=== PATIENT | male | born 1950 | race Caucasian/White ===

== ENCOUNTER 2017-10-22 13:34 | Inpatient (IN) | payer MEDICARE, OTHER ==
[~2017-10-22] VITALS: Ht 182.9 cm; Wt 92.1 kg
[~2017-10-22 13:34] MED LIST: APRISO0.375 GM PO; ASPIR 8181 MG PO; CENTRUM SILVER1 EAC3 PO; CO Q-10200 MG PO; FISH OIL300 MG PO; LISINOPRIL10 MG PO; NITROGLYCERIN0.4 MG SL
[2017-10-22] MEDS ORDERED: FUROSEMIDE40 MG PO (13:55)
[2017-10-22] MEDS ORDERED: METOPROLOL SUCC25 MG PO (13:55)
[2017-10-22] MEDS ORDERED: SODIUM CHLORIDE 0.9% 1000ML 1,000 ML IV STA (14:59)
[2017-10-22] MEDS ORDERED: HEPARIN 25,000U/0.45% NS 250ML 1,400 UNIT in SODIUM CHLORIDE 0.9% 250ML 0 ML IV SCH (15:00)
[2017-10-22] MEDS ORDERED: HEPARIN SOD (PORCINE) 5,000 UNIT/ML VIAL IV ONE (15:00)
[2017-10-22 15:08] LABS: BASOPHILS % 0.3 % (0.0-1.0); EOSINOPHILS # (AUTO) 0.2 (0.0-0.4); EOSINOPHILS % 1.5 % (0.0-6.0); HEMATOCRIT 38.3 % (38.2-49.6); HEMOGLOBIN 12.1 g/dL (14.0-18.0); LYMPHOCYTES # (AUTO) 4.6 (1.0-3.2); LYMPHOCYTES % 32.1 % (18.0-39.1); MEAN CORPUSCULAR HEMOGLOBIN 28.6 pg (28-32); MEAN CORPUSCULAR HGB CONC 31.6 g/dL (31-35); MEAN CORPUSCULAR VOLUME 90.5 fL (81-99); MONOCYTES % 7.2 % (4.4-11.3); NEUTROPHILS # (AUTO) 8.4 (2.1-6.9); NEUTROPHILS % 58.5 % (38.7-80.0); PLATELET COUNT 371 x10e3/uL (140-360); RED BLOOD COUNT 4.23 x10e6/uL (4.3-5.7); RED CELL DISTRIBUTION WIDTH 12.6 % (11.7-14.4)
[2017-10-22 15:12] LABS: INR 1.04; PROTHROMBIN TIME 12.8 seconds (11.9-14.5)
[2017-10-22 15:13] LABS: PARTIAL THROMBOPLASTIN TIME 26.4 seconds (23.8-35.5)
--- NOTE | 2017-10-22 15:19 | Diagnostic Imaging Report ---
PROCEDURE: A single AP view of the chest. COMPARISON: Patients [facility], , CHEST 2 VIEWS, 06/03/2016, 9:59. INDICATIONS: BILATERAL BLOOD CLOTS IN LEGS TODAY FINDINGS: Lines/tubes: None. Lungs: The lungs are well inflated. Stable linear opacities projecting in the left lateral costophrenic angle, likely representing scarring. There is no evidence of consolidation or pulmonary edema. Pleura: There is no pleural effusion or pneumothorax. Heart and mediastinum: Cardiac silhouette is unremarkable. CABG changes. Pulmonary vasculature is normal. Bone and soft tissues: No acute bony abnormality. Midline sternotomy wires. IMPRESSION: 1. No acute cardiopulmonary disease. Mehul Sharp M.D. Dictated by: Mehul Sharp M.D. on 10/22/2017 at 15:24 Electronically approved by: Mehul Sharp M.D. on 10/22/2017 at 15:24
[2017-10-22 15:22] LABS: ALANINE AMINOTRANSFERASE 12 IU/L (0-55); ALBUMIN 3.1 g/dL (3.5-5.0); ALBUMIN/GLOBULIN RATIO 0.6 (0.8-2.0); ALKALINE PHOSPHATASE 94 IU/L (40-150); ANION GAP 13.8 mmol/L (8-16); BLOOD UREA NITROGEN 12 mg/dL (7-26); BUN/CREATININE RATIO 11 (6-25); CALCIUM 9.7 mg/dL (8.4-10.2); CARBON DIOXIDE 30 mmol/L (22-29); CHLORIDE 98 mmol/L (98-107); CREATININE, SERUM 1.05 mg/dL (0.72-1.25); EST GLOMERULAR FILTRATION RATE > 60 ML/MIN (60-); GLUCOSE 104 mg/dL (74-118); POTASSIUM 3.8 mmol/L (3.5-5.1); SODIUM 138 mmol/L (136-145)
[2017-10-22] MEDS ORDERED: SODIUM CHLORIDE 0.9% 250ML 250 ML ONE (15:37)
[2017-10-22] MEDS ORDERED: MORPHINE SULFATE 2 MG/ML SYR IV PRN (16:15)
[2017-10-22] MEDS ORDERED: ONDANSETRON HCL INJ 2 MG/ML VIAL IV PRN (16:15)
[2017-10-22] MEDS: HEPARIN 25,000U/0.45% NS 250ML 1,400 UNIT in SODIUM CHLORIDE 0.9% 250ML 0 ML IV SCH (16:25)
[2017-10-22] MEDS ORDERED: HYDRALAZINE HCL 20 MG/ML VIAL IV PRN (16:30)
[2017-10-22] MEDS ORDERED: ACETAMINOPHEN 325 MG TAB PO PRN (16:30)
[2017-10-22] MEDS: METHYLPREDNISOLONE SOD SUCC 40 MG/ML VIAL IV SCH (16:42)
[2017-10-22] MEDS: FAMOTIDINE 20 MG TAB PO SCH (16:42)
--- NOTE | 2017-10-22 16:54 | Consultation ---
DATE OF CONSULTATION: October 22, 2017 CARDIOLOGY CONSULTATION REQUESTING PHYSICIAN: Dr. Finnegan REASON FOR CONSULTATION: DVT. HISTORY OF PRESENT ILLNESS: Mr. Lepe is a 67-year-old gentleman with past medical history as listed below, who reportedly has been experiencing worsening leg swelling. He has been taking his diuretics, but still the swelling was persistent, especially in his right leg. He has a history of DVT in his left leg in the past, so the patient was advised to have a venous Doppler. He underwent a venous Doppler today at the office. It showed extensive DVT of his right lower extremity in the common femoral and superficial femoral and popliteal veins and old thrombus in the left popliteal vein. The patient was asked to get to the hospital. Besides, the patient has noticed some red blood in his stools. He thinks it is from his hemorrhoids. He has a history of ulcerative colitis and sees Dr. Calix. Denies any chest pain. He had some shortness of breath and had some cough. REVIEW OF SYSTEMS CONSTITUTIONAL: He had some fatigue and weakness. HEENT: No headache, blurring of vision, seizures or syncope. CARDIOVASCULAR: No chest pain. Had some dyspnea, orthopnea, PND. RESPIRATORY: Has cough. No fever or expectoration. GI: No abdominal pain, vomiting or diarrhea. Has noticed some red blood in the stools. : No dysuria, frequency, incontinence. ALLERGIES: NO KNOWN DRUG ALLERGIES. MEDICATIONS: See list. PAST MEDICAL HISTORY 1. History of CAD, status post CABG in April 2016. 2. History of abdominal aortic aneurysm, status post repair by Dr. Otero in May 2014. 3. History of hypertension. 4. History of ulcerative colitis. 5. History of hyperlipidemia. 6. History of CHF diastolic. SOCIAL HISTORY: Quit smoking about 5 years back. Does not drink alcohol. FAMILY HISTORY: Noncontributory. PHYSICAL EXAMINATION GENERAL: Moderately built and nourished gentleman. Awake, alert, not in any obvious distress. VITALS: Heart rate is 98. Blood pressure is 99/43. HEENT: Atraumatic. NECK: No JVD, bruit, thyromegaly, lymphadenopathy. CARDIOVASCULAR: The 1st and 2nd heart sounds heard. No murmurs, rubs or gallops appreciated. CHEST: Decreased air entry at the bases. No adventitious sounds appreciated. Midline surgical scar. ABDOMEN: Soft, nontender. EXTREMITIES: Has 2+ edema of the right lower extremity and trace edema of the left lower extremity. LABS: Pending. IMPRESSION 1. Acute right lower extremity deep venous thrombosis. 2. History of ulcerative colitis. 3. Questionable gastrointestinal bleed. 4. History of hypertension. 5. History of coronary artery disease and coronary artery bypass graft. 6. History of abdominal aneurysm repair. 7. History of hyperlipidemia. 8. History of congestive heart failure, diastolic. PLAN 1. Patient's labs have been drawn. 2. Will get chest x-ray and EKG. 3. Will start him on IV heparin. 4. He had an echocardiogram done on 11/30 which showed an EF of 50% to 55%, mild mitral regurgitation, mild to moderate tricuspid regurgitation. 5. GI consult. 6. Patient's blood pressure is on the lower side, will hold his antihypertensives. 7. Further cardiac workup depending on clinical course. 8. Discussed my impression and plan of management with the patient and his , and they understand it. As always, I appreciate and thank you very much for your referrals. Job#: [id number]
[2017-10-22 21:55] VITALS: BP 116/72
[2017-10-22] MEDS: SODIUM CHLORIDE 0.9% 1000ML 1,000 ML IV SCH (23:48)
[2017-10-22 23:58] VITALS: BP 116/72
[2017-10-23] VITALS (8 sets, daily range): BP systolic 122–165; BP diastolic 66–88
[2017-10-23] MEDS: HEPARIN 25,000U/0.45% NS 250ML 1,400 UNIT in SODIUM CHLORIDE 0.9% 250ML 0 ML IV SCH (00:25)
[2017-10-23] MEDS: METHYLPREDNISOLONE SOD SUCC 40 MG/ML VIAL IV SCH ×3 (00:39→17:05)
[2017-10-23 06:21] LABS: BASOPHILS % 0.1 % (0.0-1.0); HEMOGLOBIN 10.2 g/dL (14.0-18.0); LYMPHOCYTES # (AUTO) 1.4 (1.0-3.2); LYMPHOCYTES % 20.5 % (18.0-39.1); MEAN CORPUSCULAR HEMOGLOBIN 28.7 pg (28-32); MEAN CORPUSCULAR HGB CONC 31.9 g/dL (31-35); MEAN CORPUSCULAR VOLUME 90.1 fL (81-99); MONOCYTES # (AUTO) 0.1 (0.2-0.8); MONOCYTES % 1.2 % (4.4-11.3); NEUTROPHILS # (AUTO) 5.3 (2.1-6.9); NEUTROPHILS % 77.8 % (38.7-80.0); PLATELET COUNT 249 x10e3/uL (140-360); RED BLOOD COUNT 3.55 x10e6/uL (4.3-5.7); RED CELL DISTRIBUTION WIDTH 12.3 % (11.7-14.4)
[2017-10-23 06:40] LABS: BLOOD UREA NITROGEN 18 mg/dL (7-26); BUN/CREATININE RATIO 18 (6-25); CALCIUM 9.3 mg/dL (8.4-10.2); CHOL/HDL RATIO 4.6 (3.9-4.7); CHOLESTEROL 188 MD/DL (0-199); CREATININE, SERUM 1.01 mg/dL (0.72-1.25); EST GLOMERULAR FILTRATION RATE > 60 ML/MIN (60-); GLUCOSE 175 mg/dL (74-118); HDL CHOLESTEROL 41 MG/DL (40-60); LDL CHOLESTEROL 128 MG/DL (60-130); MAGNESIUM 1.9 MG/DL (1.3-2.1); TRIGLYCERIDES 93 MG/DL (0-149)
[2017-10-23 07:11] LABS: ANION GAP 12.6 mmol/L (8-16); CARBON DIOXIDE 26 mmol/L (22-29); CHLORIDE 100 mmol/L (98-107); POTASSIUM 5.6 mmol/L (3.5-5.1); SODIUM 133 mmol/L (136-145)
[2017-10-23 07:39] LABS: B-TYPE NATRIURETIC PEPTIDE2 149.8 pg/mL (0-100)
[2017-10-23] MEDS: SODIUM CHLORIDE 0.9% 1000ML 1,000 ML IV SCH ×2 (07:45→20:43)
[2017-10-23 07:46] LABS: FREE T4 (FREE THYROXINE) 0.94 ng/dL (0.9-1.8); THYROID STIMULATING HORMONE 0.195 uIU/mL (0.350-4.940)
[2017-10-23] MEDS: [UNRECOGNIZED DRUG - OTHER] IV SCH (07:50)
[2017-10-23] MEDS: HEPARIN IV SCH (07:50)
[2017-10-23] MEDS: SODIUM CHLORIDE IV SCH (07:50)
[2017-10-23 07:51] LABS: BASOPHILS % 0.1 % (0.0-1.0); HEMATOCRIT 30.3 % (38.2-49.6); HEMOGLOBIN 9.9 g/dL (14.0-18.0); LYMPHOCYTES # (AUTO) 1.5 (1.0-3.2); LYMPHOCYTES % 19.7 % (18.0-39.1); MEAN CORPUSCULAR HEMOGLOBIN 28.9 pg (28-32); MEAN CORPUSCULAR HGB CONC 32.7 g/dL (31-35); MEAN CORPUSCULAR VOLUME 88.3 fL (81-99); MONOCYTES # (AUTO) 0.1 (0.2-0.8); MONOCYTES % 1.5 % (4.4-11.3); NEUTROPHILS # (AUTO) 5.8 (2.1-6.9); NEUTROPHILS % 78.3 % (38.7-80.0); PLATELET COUNT 238 x10e3/uL (140-360); RED BLOOD COUNT 3.43 x10e6/uL (4.3-5.7); RED CELL DISTRIBUTION WIDTH 12.2 % (11.7-14.4)
[2017-10-23 07:55] LABS: CLARITY,URINE CLOUDY (CLEAR); COLOR,URINE YELLOW (YELLOW); LEUKOCYTE ESTERASE ,URINE NEGATIVE (NEGATIVE)
[2017-10-23 07:56] LABS: BILIRUBIN,URINE NEGATIVE (NEGATIVE); KETONES,URINE NEGATIVE (NEGATIVE); NITRITE,URINE NEGATIVE (NEGATIVE); PROTEIN,URINE DIPSTICK TRACE (NEGATIVE); URINE UROBILINOGEN 0.2 mg/dL (0.2 - 1)
[2017-10-23] MEDS: FAMOTIDINE 20 MG TAB PO SCH ×2 (08:00→17:05)
[2017-10-23 08:05] LABS: BACTERIA,URINE MANY /HPF
[2017-10-23 08:08] LABS: AMORPHOUS SEDIMENT,URINE MANY (FEW); WBC,URINE (MAN) 0-5 /HPF (0-5)
[2017-10-23 08:14] LABS: ALANINE AMINOTRANSFERASE 9 IU/L (0-55); ALBUMIN 2.3 g/dL (3.5-5.0); ALBUMIN/GLOBULIN RATIO 0.5 (0.8-2.0); ALKALINE PHOSPHATASE 74 IU/L (40-150); ANION GAP 11.1 mmol/L (8-16); BLOOD UREA NITROGEN 17 mg/dL (7-26); BUN/CREATININE RATIO 19 (6-25); CALCIUM 8.9 mg/dL (8.4-10.2); CARBON DIOXIDE 25 mmol/L (22-29); CHLORIDE 101 mmol/L (98-107); CHOLESTEROL 185 MD/DL (0-199); CREATININE, SERUM 0.89 mg/dL (0.72-1.25); EST GLOMERULAR FILTRATION RATE > 60 ML/MIN (60-); GLUCOSE 151 mg/dL (74-118); HDL CHOLESTEROL 39 MG/DL (40-60); LDL CHOLESTEROL 128 MG/DL (60-130); POTASSIUM 4.1 mmol/L (3.5-5.1); SODIUM 133 mmol/L (136-145); TRIGLYCERIDES 91 MG/DL (0-149)
[2017-10-23 08:22] LABS: B-TYPE NATRIURETIC PEPTIDE2 240.3 pg/mL (0-100)
[2017-10-23 08:35] LABS: FREE T4 (FREE THYROXINE) 0.91 ng/dL (0.9-1.8); THYROID STIMULATING HORMONE 0.262 uIU/mL (0.350-4.940)
[2017-10-23] MEDS: METOPROLOL SUCCINATE 25 MG TAB XL PO SCH (08:44)
[2017-10-23] MEDS: FUROSEMIDE 40 MG TAB PO SCH (08:44)
[2017-10-23] MEDS ORDERED: MESALAMINE 0.375 GM CAPCR PO SCH ×2 (09:00→12:07)
--- NOTE | 2017-10-23 11:43 | History and Physical ---
PRIMARY CARE PHYSICIAN: Woo Kay DO DIXONAC OPERATOR: Dr. Calix CHIEF COMPLAINT: Left leg swelling. HISTORY OF PRESENT ILLNESS: This is a 67-year-old man with a history of left leg DVT in 2009 who was on anticoagulants for 6 months. The patient also has had ulcerative colitis and has had a GI bleed, now developing left leg swelling. 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 Ultrasound was done, which showed DVT of bilateral lower extremities. He was admitted for medical treatment and further evaluation. PAST MEDICAL HISTORY: Left leg DVT in 2009 on anticoagulant for 6 months, coronary artery disease status post coronary artery bypass graft, right carotid stenosis status post carotid endarterectomy, GI bleed, ulcerative colitis, cigarette abuse, abdominal aortic aneurysm status post repair in 2014, cancer status post nasal procedure for resection in 2003, diastolic congestive heart failure. PAST SURGICAL HISTORY: Right carotid endarterectomy, abdominal aortic aneurysm repair, coronary artery bypass grafting, nasal surgery to remove cancer in 2003, lumbar laminectomy in 1991, knee surgery in 1978. ALLERGIES: PER ELECTRONIC MEDICAL RECORD. FAMILY AND SOCIAL HISTORY: The patient is and has 1 daughter. No alcohol or illicits. Quit cigarettes. MEDICATIONS: Per electronic medical record. REVIEW OF SYSTEMS: Denies any dizziness, chest pain, shortness of breath, fever, chills, sweats, nausea, vomiting, diarrhea, headache, blurred vision. PHYSICAL EXAMINATION VITAL SIGNS: Have been reviewed. GENERAL: A tired-appearing man resting in bed. HEENT: Anicteric. Pupils are responsive to light. No oral lesions. CARDIOVASCULAR: Normal S1 and S2. LUNGS: Moderate breath sounds. ABDOMEN: Soft, nontender, nondistended. EXTREMITIES: There is 1 to 2+ leg edema of the right leg. Calf exam deferred. SKIN: Dry. PSYCHIATRIC: Normal affect. NEUROLOGIC: Alert, oriented times 3, moving all extremities. LABS: Reviewed. MEDICATIONS: Reviewed. ASSESSMENT AND PLAN: A 67-year-old man. 1. Bilateral lower leg deep venous thrombosis. 2. Coronary artery disease. 3. Hypertension. 4. Ulcerative colitis. 5. History of gastrointestinal bleed. 6. Diastolic congestive heart failure. 7. Normocytic anemia. PLAN 1. Continue heparin. 2. Continue Pepcid. Add PPI while the patient is on heparin. 3. GI evaluation. 4. Continue Lasix and for CHF with right leg edema. 5. Continue antihypertensive medication. 6. Continue mesalamine. 7. Consider IVC filter placement considering the patient had a GI bleed in the past and has also ulcerative colitis. Will defer to cardiology. 8. Will likely need lifelong anticoagulants versus IVC filter. 9. Monitor closely. Job#: [id number]
[2017-10-23] MEDS: PANTOPRAZOLE SOD 40 MG TABEC PO SCH (12:12)
[2017-10-24] VITALS (7 sets, daily range): BP systolic 141–157; BP diastolic 79–88
[2017-10-24] MEDS: METHYLPREDNISOLONE SOD SUCC 40 MG/ML VIAL IV SCH ×3 (01:00→16:35)
[2017-10-24 03:41] LABS: BASOPHILS % 0.1 % (0.0-1.0); HEMATOCRIT 31.1 % (38.2-49.6); LYMPHOCYTES # (AUTO) 1.5 (1.0-3.2); LYMPHOCYTES % 9.7 % (18.0-39.1); MEAN CORPUSCULAR HEMOGLOBIN 28.7 pg (28-32); MEAN CORPUSCULAR HGB CONC 32.2 g/dL (31-35); MEAN CORPUSCULAR VOLUME 89.1 fL (81-99); MONOCYTES # (AUTO) 0.4 (0.2-0.8); MONOCYTES % 2.5 % (4.4-11.3); NEUTROPHILS # (AUTO) 13.1 (2.1-6.9); NEUTROPHILS % 87.2 % (38.7-80.0); PLATELET COUNT 254 x10e3/uL (140-360); RED BLOOD COUNT 3.49 x10e6/uL (4.3-5.7); RED CELL DISTRIBUTION WIDTH 12.5 % (11.7-14.4)
[2017-10-24 03:58] LABS: ANION GAP 11.1 mmol/L (8-16); BLOOD UREA NITROGEN 18 mg/dL (7-26); BUN/CREATININE RATIO 21 (6-25); CALCIUM 8.7 mg/dL (8.4-10.2); CARBON DIOXIDE 27 mmol/L (22-29); CHLORIDE 102 mmol/L (98-107); CREATININE, SERUM 0.86 mg/dL (0.72-1.25); EST GLOMERULAR FILTRATION RATE > 60 ML/MIN (60-); GLUCOSE 153 mg/dL (74-118); MAGNESIUM 1.7 MG/DL (1.3-2.1); POTASSIUM 4.1 mmol/L (3.5-5.1); SODIUM 136 mmol/L (136-145)
[2017-10-24] MEDS: MESALAMINE 0.375 GM CAPCR PO SCH (07:53)
[2017-10-24] MEDS: PANTOPRAZOLE SOD 40 MG TABEC PO SCH (08:08)
[2017-10-24] MEDS: FUROSEMIDE 40 MG TAB PO SCH (08:08)
[2017-10-24] MEDS: METOPROLOL SUCCINATE 25 MG TAB XL PO SCH (08:08)
[2017-10-24] MEDS ORDERED: MESALAMINE 0.375 GM CAPCR PO SCH (09:00)
[2017-10-24 10:57] LABS: INR 1.13; PROTHROMBIN TIME 13.6 seconds (11.9-14.5)
[2017-10-24 15:55] LABS: FREE T4 (FREE THYROXINE) 0.94 ng/dL (0.9-1.8); THYROID STIMULATING HORMONE 0.374 uIU/mL (0.350-4.940)
[2017-10-24] MEDS: SODIUM CHLORIDE IV SCH (16:34)
[2017-10-24] MEDS: [UNRECOGNIZED DRUG - OTHER] IV SCH (16:34)
[2017-10-24] MEDS: HEPARIN IV SCH (16:34)
--- NOTE | 2017-10-24 17:21 | Consultation ---
DATE OF CONSULTATION: October 24, 2017 ENDOCRINE CONSULTATION Thank you very much for referring this patient. This is a 67-year-old white male gentleman who is referred to me for evaluation of low TSH, rule out hyperthyroidism. Patient came to the hospital with history of lower extremity pain and swelling. He was found to have DVT, and the patient is scheduled for an IVC filter. Patient also has history of ulcerative colitis and has been on and off steroids. During the hospital stay, he has been getting Solu-Medrol. On further evaluation during the hospital stay, his TSH was found to be low on 2 occasions in the range of 0.95. The patient does complain of significant weight loss. He has a history of mild palpitations. Patient also has a significant history of hypertension, coronary artery disease, status post CABG, status post carotid endarterectomy. PHYSICAL EXAMINATION GENERAL: Today, the patient is alert, awake, a little bit apprehensive. VITALS: His heart rate is around 70. Blood pressure is 130/80 mmHg. HEENT: Essentially unremarkable. NECK: Thyroid is barely palpable. Clinically, he is near euthyroid. CHEST: Bilateral vesicular breathing. Normal cardiac 1st and 2nd heart sounds. There is no 3rd or 4th heart sound. Ejection systolic murmur, grade 2/6. CLINICAL IMPRESSION 1. Abnormal thyroid function tests, rule out hyperthyroidism. 2. Bilateral deep venous thrombosis. 3. Ulcerative colitis. 4. Hypertension. 5. Congestive cardiac failure. 6. Anemia. The reason for low TSH could be related to being on the steroids, particularly during the hospital stay. Would like to do a free T3, free T4, TSH, and antiperoxidase antibody. Patient has been reassured about the condition. After this further evaluation, we will see if the patient needs to be on any medication from a thyroid point of view. Thanks for referring this patient. I will be following this patient with you. Job#: [id number] KRISTAN BRYAN
[2017-10-24 17:32] LABS: INR 1.09; PROTHROMBIN TIME 13.3 seconds (11.9-14.5)
[2017-10-24] MEDS: SODIUM CHLORIDE 0.9% 1000ML 1,000 ML IV SCH (18:20)
[2017-10-25] MEDS: METHYLPREDNISOLONE SOD SUCC 40 MG/ML VIAL IV SCH ×3 (01:32→17:38)
[2017-10-25 02:22] LABS: BASOPHILS % 0.1 % (0.0-1.0); HEMATOCRIT 32.7 % (38.2-49.6); HEMOGLOBIN 10.5 g/dL (14.0-18.0); LYMPHOCYTES # (AUTO) 1.5 (1.0-3.2); LYMPHOCYTES % 11.2 % (18.0-39.1); MEAN CORPUSCULAR HEMOGLOBIN 28.8 pg (28-32); MEAN CORPUSCULAR HGB CONC 32.1 g/dL (31-35); MEAN CORPUSCULAR VOLUME 89.8 fL (81-99); MONOCYTES # (AUTO) 0.6 (0.2-0.8); NEUTROPHILS # (AUTO) 11.6 (2.1-6.9); PLATELET COUNT 282 x10e3/uL (140-360); RED BLOOD COUNT 3.64 x10e6/uL (4.3-5.7); RED CELL DISTRIBUTION WIDTH 12.5 % (11.7-14.4)
[2017-10-25 02:36] LABS: ANION GAP 12.9 mmol/L (8-16); BLOOD UREA NITROGEN 22 mg/dL (7-26); BUN/CREATININE RATIO 25 (6-25); CALCIUM 8.8 mg/dL (8.4-10.2); CARBON DIOXIDE 30 mmol/L (22-29); CHLORIDE 100 mmol/L (98-107); CREATININE, SERUM 0.89 mg/dL (0.72-1.25); EST GLOMERULAR FILTRATION RATE > 60 ML/MIN (60-); GLUCOSE 133 mg/dL (74-118); MAGNESIUM 1.6 MG/DL (1.3-2.1); POTASSIUM 3.9 mmol/L (3.5-5.1); SODIUM 139 mmol/L (136-145)
[2017-10-25] MEDS: MESALAMINE 0.375 GM CAPCR PO SCH (07:41)
[2017-10-25] MEDS: FUROSEMIDE 40 MG TAB PO SCH (09:30)
[2017-10-25] MEDS: METOPROLOL SUCCINATE 25 MG TAB XL PO SCH (09:30)
[2017-10-25] MEDS: PANTOPRAZOLE SOD 40 MG TABEC PO SCH (09:30)
[2017-10-25 09:34] VITALS: BP 143/85
[2017-10-25 11:34] VITALS: BP 143/85
[2017-10-25 13:01] VITALS: BP 155/89
[2017-10-25 16:00] VITALS: BP 153/89
[2017-10-25] MEDS: HEPARIN 25,000U/0.45% NS 250ML 250 ML IV SCH (16:00)
[2017-10-25] MEDS ORDERED: HEPARIN IV SCH (16:35)
[2017-10-25] MEDS ORDERED: [UNRECOGNIZED DRUG - OTHER] IV SCH (16:35)
[2017-10-25] MEDS ORDERED: SODIUM CHLORIDE IV SCH (16:35)
[2017-10-25] MEDS: SODIUM CHLORIDE 0.9% 1000ML 1,000 ML IV SCH (17:39)
[2017-10-25 19:36] VITALS: BP 150/92
[2017-10-25 20:00] VITALS: BP 150/92
[2017-10-26] VITALS (13 sets, daily range): BP systolic 86–159; BP diastolic 63–90
[2017-10-26] MEDS: METHYLPREDNISOLONE SOD SUCC 40 MG/ML VIAL IV SCH ×3 (02:11→17:30)
[2017-10-26 03:38] LABS: BASOPHILS % 0.1 % (0.0-1.0); HEMATOCRIT 30.8 % (38.2-49.6); HEMOGLOBIN 10.1 g/dL (14.0-18.0); LYMPHOCYTES # (AUTO) 1.1 (1.0-3.2); LYMPHOCYTES % 10.5 % (18.0-39.1); MEAN CORPUSCULAR HEMOGLOBIN 28.8 pg (28-32); MEAN CORPUSCULAR HGB CONC 32.8 g/dL (31-35); MEAN CORPUSCULAR VOLUME 87.7 fL (81-99); MONOCYTES # (AUTO) 0.4 (0.2-0.8); MONOCYTES % 3.3 % (4.4-11.3); NEUTROPHILS # (AUTO) 8.9 (2.1-6.9); NEUTROPHILS % 85.4 % (38.7-80.0); PLATELET COUNT 237 x10e3/uL (140-360); RED BLOOD COUNT 3.51 x10e6/uL (4.3-5.7); RED CELL DISTRIBUTION WIDTH 12.4 % (11.7-14.4)
[2017-10-26 03:55] LABS: ANION GAP 10.8 mmol/L (8-16); BLOOD UREA NITROGEN 24 mg/dL (7-26); BUN/CREATININE RATIO 30 (6-25); CALCIUM 8.4 mg/dL (8.4-10.2); CARBON DIOXIDE 29 mmol/L (22-29); CHLORIDE 102 mmol/L (98-107); CREATININE, SERUM 0.79 mg/dL (0.72-1.25); EST GLOMERULAR FILTRATION RATE > 60 ML/MIN (60-); GLUCOSE 148 mg/dL (74-118); MAGNESIUM 1.9 MG/DL (1.3-2.1); POTASSIUM 3.8 mmol/L (3.5-5.1); SODIUM 138 mmol/L (136-145)
[2017-10-26 04:03] LABS: INR 1.19; PROTHROMBIN TIME 14.2 seconds (11.9-14.5)
[2017-10-26] MEDS ORDERED: LIDOCAINE HCL 2% LOCAL 20 ML VIAL ONE (07:51)
[2017-10-26] MEDS ORDERED: SODIUM CHLORIDE 0.9% 500ML 1,000 ML ONE (07:52)
[2017-10-26] MEDS ORDERED: FENTANYL CITRATE/PF 100MCG/2 ML INJ ONE (08:21)
[2017-10-26] MEDS ORDERED: MIDAZOLAM HCL 2 MG/2 ML VIAL ONE (08:21)
[2017-10-26] MEDS ORDERED: IOPAMIDOL 300MG/ML 100 ML INFUS..BTL IV ONE (08:29)
--- NOTE | 2017-10-26 11:28 | Diagnostic Imaging Report ---
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 Tapia Pre-operative diagnosis: Right lower extremity DVT, ulcerative colitis with ongoing rectal bleeding contraindicating continued pharmacologic anticoagulation Post-operative diagnosis: Right lower extremity DVT, ulcerative colitis with ongoing rectal bleeding contraindicating continued pharmacologic anticoagulation Conscious Sedation: Versed 2 mg and Fentanyl 100 mcg. The patient's heart rate and pulse oximetry were continuously monitored by the interventional radiology nurse. Blood pressure was monitored at 5 minute intervals. Additional Medications: Lidocaine 1% for local anesthesia Fluoroscopy time: 4.0 minutes Dose-area Product: 1592 cGycm2. Contrast used: 40 cc Isovue-300 Estimated blood loss: Less than 10 cc Blood products administered: None Specimens: None Implants: Bard Loíza retrievable inferior vena cava filter Condition at completion of procedure: Stable Disposition: Returned to floor DISCUSSION: Informed consent for the procedure was obtained from the patient and documented in the medical record after discussion of risks and benefits. The patient was placed in the supine position on the angiographic table. The right neck was prepped and draped in the standard sterile fashion. 1% lidocaine was infiltrated into the skin and subcutaneous tissues for local anesthesia. Then under continuous sonographic guidance, a 21-gauge micropuncture needle was used to access the right internal jugular vein. A 0.0 1 8-in. wire was advanced centrally under fluoroscopic guidance. The needle was exchanged for a micropuncture sheath and the wire upsized to a 0.0 3 5-in. Amplatz Super Stiff wire, which was advanced into the right common iliac vein. The micropuncture sheath was removed over the wire and the tract was dilated. The deployment sheath for a Bard Kayla inferior vena cava filter was then advanced over the wire and positioned in the central common iliac vein. Digital subtraction angiography of the inferior vena cava was then performed. The wire and obturator of the sheath were removed. The inferior vena cava filter was loaded into the sheath and then deployed in the standard fashion under fluoroscopic guidance, with the filter apex at the level of the L2 pedicle. Appropriate positioning was confirmed by injection of dilute contrast material through the vascular sheath. The sheath was then removed and hemostasis was achieved with manual compression. The patient tolerated the procedure well without immediate complication. FINDINGS: Patent internal jugular vein, evidenced by sonographic compressibility. Patent bilateral common iliac veins and inferior vena cava, without filling defect to suggest central thrombus. Single bilateral renal vein inflow at the level of the superior endplate of L2. Caval diameter measures 21 mm along the infrarenal segment. IMPRESSION: Successful placement of a Bard Kayla retrievable inferior vena cava filter under fluoroscopic guidance as described above, without immediate complication. Please notify the interventional radiology service when the patient may resume pharmacologic anticoagulation so that arrangements for filter retrieval may be made. Contact information for the department of radiology at [facility] was provided to the patient's upon completion of the procedure. Signed by: Dr. Paolo Tapia M.D. on 10/26/2017 11:24 AM
[2017-10-26] MEDS: MESALAMINE 0.375 GM CAPCR PO SCH (13:07)
[2017-10-26] MEDS: PANTOPRAZOLE SOD 40 MG TABEC PO SCH (13:08)
[2017-10-26] MEDS: FUROSEMIDE 40 MG TAB PO SCH (13:08)
[2017-10-26] MEDS: METOPROLOL SUCCINATE 25 MG TAB XL PO SCH (13:16)
[2017-10-26] MEDS ORDERED: WARFARIN SOD 5 MG TAB PO ONE (17:00)
[2017-10-26] MEDS: DIPHENOXYLATE/ATROPINE TAB PO SCH (17:35)
[2017-10-26] MEDS: SODIUM CHLORIDE 0.9% 1000ML 1,000 ML IV SCH (20:43)
[2017-10-27 01:22] VITALS: BP 145/93
[2017-10-27] MEDS: METHYLPREDNISOLONE SOD SUCC 40 MG/ML VIAL IV SCH ×3 (01:23→17:20)
[2017-10-27 01:45] LABS: BASOPHILS % 0.1 % (0.0-1.0); HEMATOCRIT 33.7 % (38.2-49.6); LYMPHOCYTES # (AUTO) 1.2 (1.0-3.2); MEAN CORPUSCULAR HEMOGLOBIN 28.7 pg (28-32); MEAN CORPUSCULAR HGB CONC 32.6 g/dL (31-35); MONOCYTES # (AUTO) 0.5 (0.2-0.8); MONOCYTES % 4.4 % (4.4-11.3); NEUTROPHILS # (AUTO) 10.1 (2.1-6.9); NEUTROPHILS % 84.5 % (38.7-80.0); PLATELET COUNT 237 x10e3/uL (140-360); RED BLOOD COUNT 3.83 x10e6/uL (4.3-5.7); RED CELL DISTRIBUTION WIDTH 12.3 % (11.7-14.4)
[2017-10-27 01:54] LABS: ANION GAP 11.1 mmol/L (8-16); BLOOD UREA NITROGEN 25 mg/dL (7-26); BUN/CREATININE RATIO 26 (6-25); CALCIUM 8.5 mg/dL (8.4-10.2); CARBON DIOXIDE 29 mmol/L (22-29); CHLORIDE 98 mmol/L (98-107); CREATININE, SERUM 0.98 mg/dL (0.72-1.25); EST GLOMERULAR FILTRATION RATE > 60 ML/MIN (60-); GLUCOSE 150 mg/dL (74-118); MAGNESIUM 1.8 MG/DL (1.3-2.1); POTASSIUM 4.1 mmol/L (3.5-5.1); SODIUM 134 mmol/L (136-145)
[2017-10-27] MEDS: HEPARIN 25,000U/0.45% NS 250ML 250 ML IV SCH ×2 (02:49→10:14)
[2017-10-27 05:27] VITALS: BP 155/94
[2017-10-27 08:43] LABS: INR 1.21; PROTHROMBIN TIME 14.4 seconds (11.9-14.5)
[2017-10-27] MEDS: MESALAMINE 0.375 GM CAPCR PO SCH (09:00)
[2017-10-27] MEDS: LISINOPRIL 10 MG TAB PO SCH (09:59)
[2017-10-27] MEDS: PANTOPRAZOLE SOD 40 MG TABEC PO SCH (09:59)
[2017-10-27] MEDS: METOPROLOL SUCCINATE 25 MG TAB XL PO SCH (09:59)
[2017-10-27] MEDS: DIPHENOXYLATE/ATROPINE TAB PO SCH ×2 (09:59→17:20)
[2017-10-27] MEDS: FUROSEMIDE 40 MG TAB PO SCH (09:59)
[2017-10-27 12:00] VITALS: BP 128/68
[2017-10-27 16:00] VITALS: BP 127/91
[2017-10-27] MEDS: WARFARIN SOD 5 MG TAB PO SCH (17:20)
[2017-10-27 20:37] VITALS: BP 114/71
[2017-10-27 20:40] VITALS: BP 114/71
[2017-10-27] MEDS: SODIUM CHLORIDE 0.9% 1000ML 1,000 ML IV SCH (20:43)
[2017-10-28 00:26] VITALS: BP 130/83
[2017-10-28] MEDS: METHYLPREDNISOLONE SOD SUCC 40 MG/ML VIAL IV SCH ×3 (00:26→16:26)
[2017-10-28 04:52] VITALS: BP 141/80
[2017-10-28 04:57] LABS: BASOPHILS % 0.1 % (0.0-1.0); HEMATOCRIT 33.3 % (38.2-49.6); HEMOGLOBIN 10.8 g/dL (14.0-18.0); LYMPHOCYTES # (AUTO) 1.1 (1.0-3.2); LYMPHOCYTES % 8.3 % (18.0-39.1); MEAN CORPUSCULAR HEMOGLOBIN 28.6 pg (28-32); MEAN CORPUSCULAR HGB CONC 32.4 g/dL (31-35); MEAN CORPUSCULAR VOLUME 88.1 fL (81-99); MONOCYTES # (AUTO) 0.6 (0.2-0.8); NEUTROPHILS # (AUTO) 11.9 (2.1-6.9); NEUTROPHILS % 86.5 % (38.7-80.0); PLATELET COUNT 262 x10e3/uL (140-360); RED BLOOD COUNT 3.78 x10e6/uL (4.3-5.7); RED CELL DISTRIBUTION WIDTH 12.6 % (11.7-14.4)
[2017-10-28 05:06] LABS: INR 2.48; PROTHROMBIN TIME 25.2 seconds (11.9-14.5)
[2017-10-28 05:07] LABS: PARTIAL THROMBOPLASTIN TIME 81.5 seconds (23.8-35.5)
[2017-10-28 05:11] LABS: ANION GAP 8.2 mmol/L (8-16); BLOOD UREA NITROGEN 31 mg/dL (7-26); BUN/CREATININE RATIO 36 (6-25); CALCIUM 8.6 mg/dL (8.4-10.2); CARBON DIOXIDE 34 mmol/L (22-29); CHLORIDE 96 mmol/L (98-107); CREATININE, SERUM 0.85 mg/dL (0.72-1.25); EST GLOMERULAR FILTRATION RATE > 60 ML/MIN (60-); GLUCOSE 144 mg/dL (74-118); MAGNESIUM 1.9 MG/DL (1.3-2.1); POTASSIUM 4.2 mmol/L (3.5-5.1); SODIUM 134 mmol/L (136-145)
[2017-10-28 07:41] VITALS: BP 125/75
[2017-10-28] MEDS: MESALAMINE 0.375 GM CAPCR PO SCH (07:49)
[2017-10-28] MEDS ORDERED: POTASSIUM CHLORIDE 20 MEQ TAB CR PO STA (08:29)
[2017-10-28] MEDS ORDERED: FUROSEMIDE INJ 10 MG/ML 4 ML VIAL IV ONE ×2 (08:30→16:00)
[2017-10-28 09:00] VITALS: BP 125/75
[2017-10-28] MEDS: LISINOPRIL 10 MG TAB PO SCH (09:45)
[2017-10-28] MEDS: METOPROLOL SUCCINATE 25 MG TAB XL PO SCH (09:45)
[2017-10-28] MEDS: DIPHENOXYLATE/ATROPINE TAB PO SCH ×2 (09:45→17:03)
[2017-10-28] MEDS: FUROSEMIDE 40 MG TAB PO SCH (09:45)
[2017-10-28] MEDS: PANTOPRAZOLE SOD 40 MG TABEC PO SCH (09:45)
[2017-10-28 11:55] VITALS: BP 125/75
[2017-10-28 15:53] VITALS: BP 127/79
[2017-10-28] MEDS ORDERED: POTASSIUM CHLORIDE 20 MEQ TAB CR PO ONE (16:00)
[2017-10-28] MEDS ORDERED: POTASSIUM CHLO10 ME1 PO (16:23)
[2017-10-28] MEDS ORDERED: LISINOPRIL10 MG PO (16:23)
[2017-10-28] MEDS ORDERED: COUMADIN3 MG PO (16:23)
[2017-10-28] MEDS ORDERED: FUROSEMIDE40 MG PO (16:23)
[2017-10-28] MEDS ORDERED: PREDNISONE20 MG PO (16:23)
[2017-10-28] MEDS ORDERED: METOPROLOL TART25 MG PO (16:23)
[2017-10-28] MEDS: WARFARIN SOD 5 MG TAB PO SCH (16:26)
[2017-10-28] MEDS: HEPARIN 25,000U/0.45% NS 250ML 250 ML IV SCH (17:15)
--- NOTE | 2017-10-28 17:16 | Discharge Summary ---
ADMISSION DIAGNOSES 1. Bilateral lower leg deep vein thrombosis. 2. Coronary artery disease. 3. Hypertension. 4. Ulcerative colitis. 5. History of gastrointestinal bleed. 6. Diastolic congestive heart failure, chronic. 7. Normocytic anemia. DISCHARGE DIAGNOSES 1. Bilateral lower leg deep vein thrombosis. 2. Coronary artery disease. 3. Hypertension. 4. Ulcerative colitis. 5. History of gastrointestinal bleed. 6. Diastolic congestive heart failure, chronic. 7. Normocytic anemia. 8. Hyponatremia. 9. Rule out Clostridium difficile, ___ruled out. 10. Hyperthyroidism. 11. Bradycardia. HISTORY: Patient has a history of left leg DVT in 2009 on anticoagulants for 6 months, CAD status post bypass, right carotid stenosis status post carotid endarterectomy, GI bleed, ulcerative colitis, cigarette abuse, abdominal aortic aneurysm status post repair in 2014, cancer status post nasal procedure for resection in 2003, chronic diastolic congestive heart failure. SURGICAL HISTORY: Right carotid endarterectomy, abdominal aortic aneurysm repair, CABG, nasal surgery to remove cancer, lumbar laminectomy in 1991, and knee surgery in 1978. HOSPITAL COURSE: A 67-year-old male with a history of left leg DVT was on anticoagulation for 6 months in 2009. The patient also has ulcerative colitis and now has a GI bleed as well as bilateral leg swelling. He went to his patient support specialist. An ultrasound was done which showed DVT bilaterally of lower extremities. On admission patient was started on IV heparin. Patient initially did not want to do an IVC filter, but after talking to his patient support specialist as well as the doctor who would place the filter, he agreed. Patient had the filter placed on October 26 with no complications. He remained on heparin a couple more days and was started on Coumadin for overlap therapy. Patient's TSH was found to be 0.195 initially. Free T4 was 0.94. Endocrinology was consulted to rule out hyperthyroidism. Per endocrinology, it could be due to steroids. He will follow up with Dr. Mack in 3 to 4 weeks. On October 28, the patient is clear to discharge per Cardiology. He is now having bowel movements with very little blood as opposed to during admission he was having a lot of blood with very little bowel movements. He is also clear to discharge per Gastroenterology. He will discharge with Lasix and potassium p.o. daily as needed, prednisone 40 daily for 12 days, Coumadin 3 mg daily for 30 days, lisinopril 10 mg and metoprolol 25 b.i.d. He will continue his mesalamine from home per GI. He will follow up with GI on Thursday and Cardiology in 1 to 2 weeks as well as Dr. Mack in 3 to 4 weeks. His has also been given information on who to contact and when to contact them for retrieval of the IVC filter. Both patient and understand discharge instructions and agree with discharge plan. Before discharge, nurse will also give the patient information regarding Coumadin and a diet recommended for Coumadin consumption. Patient will also follow up with Primary Care in 1 to 2 weeks. He is excited and ready to go home. Vital signs are stable, patient afebrile. On day of discharge, WBC 13.73, hemoglobin 10.8, hematocrit 33.3, platelet of 262, sodium of 134, creatinine of 0.85, BUN of 31, GFR of over 60. Patient will discharge home and follow up as discussed. Dictated by: Marcela De La Fuente NP EMMA GEORGE MD Job#: [id number]
== END 2017-10-28 18:00 | disposition home or self-care (01) | DRG 253 ==
LOC: ER 13:34 → ERHOLD 16:05 → IMCU 21:29
PROVIDERS: ADMIT Internal Medicine; ATTEND Internal Medicine
PROC: 06H03DZ Insertion of Intraluminal Device into Inferior Vena Cava, Percutaneous Approach (ICD-10-PCS; principal; 2017-10-26)
DX: I82.411 Acute embolism and thrombosis of right femoral vein (principal); K51.911 Ulcerative colitis, unspecified with rectal bleeding; I50.32 Chronic diastolic (congestive) heart failure; E87.1 Hypo-osmolality and hyponatremia; I82.431 Acute embolism and thrombosis of right popliteal vein; I82.441 Acute embolism and thrombosis of right tibial vein; Z86.718 Personal history of other venous thrombosis and embolism; I25.10 Atherosclerotic heart disease of native coronary artery without angina pectoris; Z95.1 Presence of aortocoronary bypass graft; Z85.22 Personal history of malignant neoplasm of nasal cavities, middle ear, and accessory sinuses; D64.9 Anemia, unspecified; Z87.891 Personal history of nicotine dependence; E78.5 Hyperlipidemia, unspecified; I11.0 Hypertensive heart disease with heart failure; D72.829 Elevated white blood cell count, unspecified; E05.80 Other thyrotoxicosis without thyrotoxic crisis or storm; T38.0X5A Adverse effect of glucocorticoids and synthetic analogues, initial encounter
CPT/HCPCS: 36415; 37191; 71045; 74470; 80048; 80053; 80061; 81001; 82465; 83036; 83718; 83721; 83735; 83880; 84439; 84443; 84478; 84481; 85025; 85610; 85730; 86376; 87086; 87493; 93005; 96366; 99284; J1644; J1940; J2001; J2250; J2920; J7030; J7040; J7050; Q9967

== ENCOUNTER → 2018-11-16 | Day surgery (SDC) | payer MEDICARE, OTHER ==
[2018-11-12 15:16] LABS: BASOPHILS % 0.5 % (0.0-1.0); EOSINOPHILS # (AUTO) 0.2 (0.0-0.4); EOSINOPHILS % 2.9 % (0.0-6.0); HEMATOCRIT 44.3 % (38.2-49.6); LYMPHOCYTES # (AUTO) 2.2 (1.0-3.2); LYMPHOCYTES % 27.5 % (18.0-39.1); MEAN CORPUSCULAR HEMOGLOBIN 29.4 pg (28-32); MEAN CORPUSCULAR HGB CONC 31.6 g/dL (31-35); MEAN CORPUSCULAR VOLUME 92.9 fL (81-99); MONOCYTES # (AUTO) 0.8 (0.2-0.8); MONOCYTES % 9.3 % (4.4-11.3); NEUTROPHILS # (AUTO) 4.8 (2.1-6.9); NEUTROPHILS % 59.6 % (38.7-80.0); PLATELET COUNT 196 x10e3/uL (140-360); RED BLOOD COUNT 4.77 x10e6/uL (4.3-5.7); RED CELL DISTRIBUTION WIDTH 12.9 % (11.7-14.4)
[2018-11-12 15:31] LABS: INR 1.12; PROTHROMBIN TIME 14.9 seconds (11.9-14.5)
[~2018-11-16] VITALS: Ht 365.8 cm; Wt 86.2 kg
[~2018-11-16] MED LIST changes: +ATORVASTATIN CA20 MG PO; +COUMADIN3 MG PO; +COUMADIN5 MG PO; +FENTANYL CITRATE/PF 100MCG/2 ML INJ ONE; +FUROSEMIDE40 MG PO; +HEPARIN SOD/SOD CHLORIDE 2,000 ML ONE; +IOPAMIDOL 370 MG/ML 200 ML INFUS..BTL INJ ONE; +LIDOCAINE HCL 2% LOCAL 20 ML VIAL ONE; +METOPROLOL SUCC25 MG PO; +METOPROLOL TART25 MG PO; +MIDAZOLAM HCL 2 MG/2 ML VIAL ONE; +POTASSIUM CHLO10 ME1 PO; +PREDNISONE20 MG PO; +SODIUM CHLORIDE 0.9% 1000ML 1,000 ML ONE
[2018-11-16 10:20] VITALS: BP 137/79
--- NOTE | 2018-11-16 10:20 | NUR ---
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 Identiferx2 Id band left arm NKDA at bedside Leah Alert oriented and appropriate, PERRLA, respirations even and unlabored to room air. Pulses x4 extremities equal and faint. Pedal pulses PT/DP weak to nonexistent and marked. Cap fill brisk Skin warm and dry integrity appears intact in general. IV 20g#20 left arm x1 started and presents healthy w/o s/s of infiltration or complaint.Flushed Ns and slip clamp in place. Abdomen soft and supple. pt offered toileting, denies need to urinate or defecate. Personal affects with patient. Family at bedside. Pt and family verbalizes understanding of POC. No pre op orders. Report to Zachary TAVERA. Leah states has personal appt at 12n and will be able to pharmacy picking technician pt around 2pm. No gross issues pain,pallor,pressure.Denies CP or SOB Orientated to room bedbrakes on, in low position with call light at bedside. Requested to ask for assistance to get up. remains at bedside. ds/charles
--- OUTSIDE RECORDS SUMMARY | 2018-11-16 10:28 | XMS REPORT | Clinical Summary ---
Author Author [facility] Organization [facility] Address Unknown Phone Unavailable Care Team Providers Care Group Leader Wafer Polishing Name Role Phone Woo Kay DO PCP Allergies No Known Allergies Medications End Date Status Medication Sig Dispensed Refills Start Date Active lisinopril Take 10 mg by 0 (PRINIVIL,ZESTRIL) 10 mg mouth daily. tablet Active mesalamine (APRISO) 0.375 Take 625 mg 0 gram 24 hr capsule by mouth daily. Active aspirin (ECOTRIN) 81 MG Take 81 mg by 0 enteric coated tablet mouth daily. Active nitroglycerin (NITROSTAT) Place 0.4 mg 0 0.4 MG SL tablet under the tongue every 5 (five) minutes as needed for chest pain. Active Problems Problem Noted Date Acute blood loss as cause of postoperative anemia 05/14/2016 Hyperkalemia 05/14/2016 HEATH (acute kidney injury) 05/14/2016 CAD, multiple vessel 05/12/2016 Essential hypertension 05/12/2016 Ulcerative colitis 05/12/2016 Abdominal aortic aneurysm 05/12/2016 Anemia of chronic disease 05/12/2016 Social History Date Tobacco Use Types Packs/Day Years Used Former Smoker 2 47 Comments: quit 01/2009 Alcohol Use Drinks/Week oz/Week Comments No Sex Assigned at Date Recorded Not on file Industry Job Start Date Occupation Not on file Not on file Not on file Travel End Travel History Travel Start No recent travel history available. Last Filed Vital Signs Not on file Plan of Treatment Health Maintenance Due Date Last Done Comments COLONOSCOPY SCREENING 1998 SHINGLES VACCINES (#1) 1998 65+ PNEUMOCOCCAL VACCINE 2013 (1 of 2 - PCV13) INFLUENZA VACCINE 11/25/2018 Implants Device Identifier Shelf Expiration Date Model / Serial / Lot Implanted Type [place] Manufactur [place] [id number] / / Lead Pace Carlyle Mycrdl Unipol Tmpry Cardiovasc N/A: N/A MEDTRONIC Streamline - [id number] ular [place] - Implanted: 05/13/2016 (Quantity not Implants CARDIAC on file) SRGRY S 1100 [id number] / / Chamber Sgl Natalya Dry Suct 1wy Vlv Surgical N/A: N/A TELEFLEX Adlt Pedi - [id number] Implants; MEDICAL Implanted: 05/13/2016 (Quantity not Expanders; on file) Extenders; Surgical Wires 01/22/2021 [id number] / / [id number] [place] Perph Vasclr Ptfe 1.2x10cm Vascular N/A: N/A BARD 1.65mm - [id number] Graft PERIPHERAL Implanted: 05/13/2016 (Quantity not VASCULAR on file) Results Not on fileafter 11/15/2017 Insurance Type Payer Benefit Subscriber ID Effective Phone Address Plan / Dates Group Medicare MEDICARE MEDICARE xxxxxxxxxx 2013- [place]URI, PART A AND Present [place] B PPO HUMANA HUMANA xxxxxxxxx [id number] CHOICE resent CARE PPO Advance Directives Patient has advance care planning documents on file. For more information, alma rosa ann contact: Lauri Jones [address] [place] [address]
[2018-11-16 13:45] VITALS: BP 128/78
--- NOTE | 2018-11-16 13:45 | NUR ---
1345pBedside report received from LIANG Ridley.Identiferx2.IV filter Alert oriented and appropriate, PERRLA, respirations even and unlabored to room air. Pulses x4 extremities equal and strong. Pedal pulses PT/FPb3Inc fill brisk < 3 sec. Skin warm and dry integrity appears D/I IV 20g to left arm presents healthy w/o s/s of infiltration or complaint.100cchr via dial a flow. Abdomen soft and supple. pt offered toileting, denies need to urinate or defecate. No personal affects with patient. Awaiting family arrival. Pt verbalizes understanding of POC. Rt Ij dressing dry and intact No gross issues pain pallor pressure or dysrhythmia. Radha Riddle Rn discussed POC and gave copies to pt For f/o Dr Office 2wks Left iv ti be dc'd upon dc. Currently w/o complaint of pain or need. manny/liang
--- NOTE | 2018-11-16 14:39 | NUR ---
Patient given discharge instructions and medication reconciliation sheet and wheeled to lobby. Dressing clean dryu and intact and IV removed. Patient vital signs within normal limits and no neurovascular checks completed and within normal limits. No complaints of pain from patient asked to follow up with MD in 2 weeks.
--- NOTE | 2018-11-19 07:43 | Operative Report ---
DATE OF PROCEDURE: 11/16/2018 SURGEON: Nestor Barragan MD INDICATION: Inferior vena cava filter retrieval with need for anticoagulation. COMPLICATIONS: None. BLOOD LOSS: 5 mL. DESCRIPTION OF PROCEDURE: Ultrasound-guided access was obtained to the right internal jugular vein. The IVC filter was identified. The 13-[place] sheath was advanced to the inferior vena cava. The filter was retrieved using Lasso system without complications. Venogram demonstrated an intact IVC without perforation or thrombus. The sheath was removed under manual pressure from the right neck. The patient discharged home same day. Nestor Barragan MD KSB/MODL /[id number]
--- NOTE | 2018-12-28 17:14 | Operative Report ---
DATE OF PROCEDURE: 11/16/2018 SURGEON: Nestor Barragan MD INDICATION: IVC filter, end of need for anticoagulation. PROCEDURES PERFORMED: 1. Venogram of the inferior vena cava. 2. Retrieval of IVC filter. COMPLICATIONS: None. DESCRIPTION OF PROCEDURE: Access obtained in the right internal jugular vein using ultrasound guidance. A 6-Sami sheath was placed. IVC filter was well visualized without thrombus by venogram performed in the inferior vena cava. The IVC filter was snared, withdrawn into the sheath, and removed without complications. Right internal jugular vein sheath manual pressure was applied. The patient discharged home same day. Nestor Barragan MD KSB/MODL /[id number]
== END | disposition home or self-care (01) ==
LOC: CATH LAB 10:12
PROVIDERS: ATTEND Internal Medicine Interventional Cardiology
DX: Z45.89 Encounter for adjustment and management of other implanted devices (principal); I82.493 Acute embolism and thrombosis of other specified deep vein of lower extremity, bilateral; I25.810 Atherosclerosis of coronary artery bypass graft(s) without angina pectoris; I10 Essential (primary) hypertension; Z01.812 Encounter for preprocedural laboratory examination; Z79.01 Long term (current) use of anticoagulants; Z68.32 Body mass index [BMI] 32.0-32.9, adult; Z95.1 Presence of aortocoronary bypass graft; Z82.3 Family history of stroke
CPT/HCPCS: 36415; 37193; 76937; 85025; 85610; C1766 ×2; C1769; J2001; J2250; J3010; J7030; Q9967

== ENCOUNTER 2021-01-30 17:37 | Inpatient (IN) | payer MEDICARE, OTHER ==
[~2021-01-30] VITALS: Ht 182.9 cm; Wt 86.2 kg
[~2021-01-30 17:37] MED LIST changes: -FENTANYL CITRATE/PF 100MCG/2 ML INJ ONE; -HEPARIN SOD/SOD CHLORIDE 2,000 ML ONE; -IOPAMIDOL 370 MG/ML 200 ML INFUS..BTL INJ ONE; -LIDOCAINE HCL 2% LOCAL 20 ML VIAL ONE; -MIDAZOLAM HCL 2 MG/2 ML VIAL ONE; -SODIUM CHLORIDE 0.9% 1000ML 1,000 ML ONE
[2021-01-30] MEDS ORDERED: SODIUM CHLORIDE 0.9% 1000ML 1,000 ML IV ONE (18:00)
[2021-01-30] MEDS ORDERED: ACETAMINOPHEN 325 MG TAB PO ONE (18:00)
[2021-01-30] MEDS ORDERED: ACETAMINOPHEN 650 MG SUPP PR ONE ×2 (18:00→18:19)
[2021-01-30] MEDS ORDERED: CEFTRIAXONE 1 GM in SODIUM CHLORIDE 0.9% 50ML 50 ML IV ONE (18:00)
[2021-01-30 18:26] LABS: BASOPHILS % 0.2 % (0.0-1.0); HEMATOCRIT 35.4 % (38.2-49.6); HEMOGLOBIN 11.2 g/dL (14.0-18.0); LYMPHOCYTES # (AUTO) 1.7 (1.0-3.2); LYMPHOCYTES % 10.3 % (18.0-39.1); MEAN CORPUSCULAR HGB CONC 31.6 g/dL (31-35); MEAN CORPUSCULAR VOLUME 91.7 fL (81-99); MONOCYTES # (AUTO) 1.1 (0.2-0.8); MONOCYTES % 6.5 % (4.4-11.3); NEUTROPHILS # (AUTO) 13.6 (2.1-6.9); NEUTROPHILS % 82.3 % (38.7-80.0); PLATELET COUNT 214 x10e3/uL (140-360); RED BLOOD COUNT 3.86 x10e6/uL (4.3-5.7); RED CELL DISTRIBUTION WIDTH 12.7 % (11.7-14.4)
[2021-01-30 18:29] LABS: CLARITY,URINE SL CLOUDY (CLEAR); COLOR,URINE AMBER (YELLOW); KETONES,URINE TRACE (NEGATIVE); LEUKOCYTE ESTERASE ,URINE TRACE (NEGATIVE); NITRITE,URINE POSITIVE (NEGATIVE); PROTEIN,URINE DIPSTICK 2+ (NEGATIVE); URINE UROBILINOGEN 1 mg/dL (0.2 - 1)
[2021-01-30 18:32] LABS: INR 1.26; PROTHROMBIN TIME 16.1 seconds (11.9-14.5)
[2021-01-30 18:33] LABS: PARTIAL THROMBOPLASTIN TIME 30.8 seconds (23.8-35.5)
[2021-01-30 18:38] LABS: ALBUMIN 2.2 g/dL (3.5-5.0); ALBUMIN/GLOBULIN RATIO 0.6 (0.8-2.0); ANION GAP 13.3 mmol/L (8-16); CALCIUM 7.9 mg/dL (8.4-10.2); CREATININE, SERUM 1.08 mg/dL (0.72-1.25); POTASSIUM 4.3 mmol/L (3.5-5.1)
[2021-01-30 18:40] LABS: BACTERIA,URINE MANY /HPF
[2021-01-30 18:45] LABS: CREATINE KINASE MB 0.3 ng/mL (0-5.0)
[2021-01-30] MEDS ORDERED: ACETAMINOPHEN 325 MG TAB PO PRN (19:45)
[2021-01-30] MEDS: SODIUM CHLORIDE 0.9% 1000ML 1,000 ML IV SCH (20:31)
[2021-01-30 21:36] LABS: LYMPHOCYTES % (MANUAL) 2 % (19-48); MONOCYTES % (MANUAL) 12 % (3.4-9.0); NEUTROPHILS % (MANUAL) 83 % (40-74); PLATELET ESTIMATE ADEQUATE; PLATELET MORPHOLOGY COMMENT NORMAL; RBC MORPHOLOGY COMMENT NORMAL
[2021-01-31] VITALS (9 sets, daily range): BP systolic 105–126; BP diastolic 62–76
[2021-01-31 01:25] LABS: CREATINE KINASE MB 1.4 ng/mL (0-5.0)
[2021-01-31] MEDS: ALBUTEROL SULF 0.083% NEB SOLN 3 ML NEB NEB SCH ×7 (02:50→23:50)
[2021-01-31 05:11] LABS: BASOPHILS # (AUTO) 0.1 (0.0-0.1); BASOPHILS % 0.4 % (0.0-1.0); HEMATOCRIT 35.4 % (38.2-49.6); LYMPHOCYTES # (AUTO) 0.7 (1.0-3.2); LYMPHOCYTES % 4.5 % (18.0-39.1); MEAN CORPUSCULAR HGB CONC 31.1 g/dL (31-35); MEAN CORPUSCULAR VOLUME 93.4 fL (81-99); MONOCYTES # (AUTO) 0.7 (0.2-0.8); MONOCYTES % 4.1 % (4.4-11.3); NEUTROPHILS # (AUTO) 14.3 (2.1-6.9); NEUTROPHILS % 89.8 % (38.7-80.0); PLATELET COUNT 160 x10e3/uL (140-360); RED BLOOD COUNT 3.79 x10e6/uL (4.3-5.7); RED CELL DISTRIBUTION WIDTH 12.7 % (11.7-14.4)
[2021-01-31] MEDS: SODIUM CHLORIDE 0.9% 1000ML 1,000 ML IV SCH ×3 (05:45→20:00)
[2021-01-31 06:12] LABS: ALBUMIN 1.9 g/dL (3.5-5.0); ALBUMIN/GLOBULIN RATIO 0.5 (0.8-2.0); ANION GAP 13.1 mmol/L (8-16); CALCIUM 7.9 mg/dL (8.4-10.2); CREATININE, SERUM 0.94 mg/dL (0.72-1.25); POTASSIUM 4.1 mmol/L (3.5-5.1)
[2021-01-31] MEDS ORDERED: NITROGLYCERIN0.4 MG SL (06:36)
[2021-01-31] MEDS: IPRATROPIUM BROMIDE 0.02% 2.5 ML NEB NEB SCH ×5 (07:03→23:50)
[2021-01-31 07:37] LABS: BAND NEUTROPHILS % (MANUAL) 2 %; LYMPHOCYTES % (MANUAL) 3 % (19-48); MONOCYTES % (MANUAL) 4 % (3.4-9.0); NEUTROPHILS % (MANUAL) 91 % (40-74); PLATELET ESTIMATE ADEQUATE; PLATELET MORPHOLOGY COMMENT NORMAL; RBC MORPHOLOGY COMMENT NORMAL
[2021-01-31 13:07] LABS: CREATINE KINASE MB 2.6 ng/mL (0-5.0)
[2021-01-31] MEDS: METHYLPREDNISOLONE SOD SUCC 125 MG/2ML VIAL IV SCH (17:37)
[2021-01-31] MEDS: CEFTRIAXONE 1 GM in SODIUM CHLORIDE 0.9% 50ML 50 ML IV SCH (17:37)
[2021-01-31] MEDS: WARFARIN SOD 5 MG TAB PO SCH (17:37)
[2021-01-31] MEDS ORDERED: SODIUM CHLORIDE 0.9% 50ML 50 ML ONE (19:24)
[2021-01-31] MEDS ORDERED: IOPAMIDOL 370 MG/ML 200 ML INFUS..BTL INJ ONE ×2 (19:24)
[2021-02-01] VITALS (7 sets, daily range): BP systolic 114–128; BP diastolic 59–71
[2021-02-01] MEDS: ALBUTEROL SULF 0.083% NEB SOLN 3 ML NEB NEB SCH ×6 (03:05→23:45)
[2021-02-01 05:44] LABS: BASOPHILS # (AUTO) 0.1 (0.0-0.1); BASOPHILS % 0.3 % (0.0-1.0); HEMOGLOBIN 9.6 g/dL (14.0-18.0); LYMPHOCYTES # (AUTO) 0.4 (1.0-3.2); LYMPHOCYTES % 2.5 % (18.0-39.1); MEAN CORPUSCULAR HEMOGLOBIN 29.1 pg (28-32); MEAN CORPUSCULAR VOLUME 90.9 fL (81-99); MONOCYTES # (AUTO) 0.6 (0.2-0.8); MONOCYTES % 3.5 % (4.4-11.3); NEUTROPHILS # (AUTO) 14.2 (2.1-6.9); NEUTROPHILS % 90.5 % (38.7-80.0); PLATELET COUNT 169 x10e3/uL (140-360); RED CELL DISTRIBUTION WIDTH 12.6 % (11.7-14.4)
[2021-02-01 06:02] LABS: INR 1.29; PROTHROMBIN TIME 16.3 seconds (11.9-14.5)
[2021-02-01] MEDS: SODIUM CHLORIDE 0.9% 1000ML 1,000 ML IV SCH ×2 (06:08→20:50)
[2021-02-01] MEDS: METHYLPREDNISOLONE SOD SUCC 125 MG/2ML VIAL IV SCH ×2 (06:08→17:01)
[2021-02-01] MEDS: IPRATROPIUM BROMIDE 0.02% 2.5 ML NEB NEB SCH ×3 (07:10→18:30)
[2021-02-01] MEDS: ATORVASTATIN 20 MG TAB PO SCH (08:22)
[2021-02-01] MEDS: WARFARIN SOD 5 MG TAB PO SCH (17:01)
[2021-02-01] MEDS: CEFTRIAXONE 1 GM in SODIUM CHLORIDE 0.9% 50ML 50 ML IV SCH (17:01)
[2021-02-01] MEDS ORDERED: NITROGLYCERIN 0.4 MG SUBL SL SCH (20:00)
[2021-02-01] MEDS ORDERED: MESALAMINE 0.375 GM CAPCR PO SCH (20:00)
[2021-02-02] VITALS (9 sets, daily range): BP systolic 115–140; BP diastolic 65–80
[2021-02-02] MEDS: ALBUTEROL SULF 0.083% NEB SOLN 3 ML NEB NEB SCH ×7 (03:35→23:35)
[2021-02-02] MEDS: METHYLPREDNISOLONE SOD SUCC 125 MG/2ML VIAL IV SCH (05:59)
[2021-02-02] MEDS: IPRATROPIUM BROMIDE 0.02% 2.5 ML NEB NEB SCH ×5 (06:00→23:35)
[2021-02-02 07:14] LABS: BASOPHILS % 0.2 % (0.0-1.0); HEMATOCRIT 30.5 % (38.2-49.6); HEMOGLOBIN 9.3 g/dL (14.0-18.0); LYMPHOCYTES # (AUTO) 0.6 (1.0-3.2); LYMPHOCYTES % 4.8 % (18.0-39.1); MEAN CORPUSCULAR HEMOGLOBIN 28.6 pg (28-32); MEAN CORPUSCULAR HGB CONC 30.5 g/dL (31-35); MEAN CORPUSCULAR VOLUME 93.8 fL (81-99); MONOCYTES # (AUTO) 0.4 (0.2-0.8); NEUTROPHILS # (AUTO) 11.3 (2.1-6.9); NEUTROPHILS % 89.5 % (38.7-80.0); PLATELET COUNT 179 x10e3/uL (140-360); RED BLOOD COUNT 3.25 x10e6/uL (4.3-5.7); RED CELL DISTRIBUTION WIDTH 12.9 % (11.7-14.4)
[2021-02-02 07:29] LABS: CALCIUM 7.9 mg/dL (8.4-10.2); CREATININE, SERUM 0.77 mg/dL (0.72-1.25); MAGNESIUM 2.1 MG/DL (1.3-2.1); PHOSPHORUS 2.5 MG/DL (2.3-4.7)
[2021-02-02] MEDS: PANTOPRAZOLE SOD 40 MG TABEC PO SCH (08:03)
[2021-02-02] MEDS: SODIUM CHLORIDE 0.9% 1000ML 1,000 ML IV SCH ×2 (08:03→17:01)
[2021-02-02] MEDS: ATORVASTATIN 20 MG TAB PO SCH (08:03)
[2021-02-02] MEDS: MESALAMINE 0.375 GM CAPCR PO SCH (09:54)
[2021-02-02] MEDS: WARFARIN SOD 5 MG TAB PO SCH (17:01)
[2021-02-02] MEDS: CEFTRIAXONE 1 GM in SODIUM CHLORIDE 0.9% 50ML 50 ML IV SCH (17:01)
[2021-02-03] VITALS (8 sets, daily range): BP systolic 127–154; BP diastolic 76–83
[2021-02-03] MEDS: ALBUTEROL SULF 0.083% NEB SOLN 3 ML NEB NEB SCH ×5 (03:05→19:35)
[2021-02-03] MEDS: SODIUM CHLORIDE 0.9% 1000ML 1,000 ML IV SCH ×2 (04:34→13:45)
[2021-02-03 06:33] LABS: BASOPHILS % 0.2 % (0.0-1.0); HEMATOCRIT 30.1 % (38.2-49.6); HEMOGLOBIN 8.9 g/dL (14.0-18.0); LYMPHOCYTES % 8.1 % (18.0-39.1); MEAN CORPUSCULAR HEMOGLOBIN 28.3 pg (28-32); MEAN CORPUSCULAR HGB CONC 29.6 g/dL (31-35); MEAN CORPUSCULAR VOLUME 95.6 fL (81-99); MONOCYTES # (AUTO) 0.7 (0.2-0.8); MONOCYTES % 5.4 % (4.4-11.3); NEUTROPHILS # (AUTO) 10.6 (2.1-6.9); NEUTROPHILS % 85.8 % (38.7-80.0); PLATELET COUNT 196 x10e3/uL (140-360); RED BLOOD COUNT 3.15 x10e6/uL (4.3-5.7); RED CELL DISTRIBUTION WIDTH 13.1 % (11.7-14.4)
[2021-02-03] MEDS: PANTOPRAZOLE SOD 40 MG TABEC PO SCH (07:30)
[2021-02-03] MEDS: IPRATROPIUM BROMIDE 0.02% 2.5 ML NEB NEB SCH ×2 (07:42→19:35)
[2021-02-03] MEDS: ATORVASTATIN 20 MG TAB PO SCH (09:00)
[2021-02-03 09:14] LABS: HYPOCHROMASIA SLIGHT; LYMPHOCYTES % (MANUAL) 4 % (19-48); MONOCYTES % (MANUAL) 4 % (3.4-9.0); NEUTROPHILS % (MANUAL) 92 % (40-74); PLATELET ESTIMATE ADEQUATE; PLATELET MORPHOLOGY COMMENT NORMAL; RBC MORPHOLOGY COMMENT NORMAL
[2021-02-03] MEDS: MESALAMINE 0.375 GM CAPCR PO SCH (10:48)
[2021-02-03] MEDS: WARFARIN SOD 5 MG TAB PO SCH (16:13)
[2021-02-03] MEDS: CEFTRIAXONE 1 GM in SODIUM CHLORIDE 0.9% 50ML 50 ML IV SCH (19:16)
[2021-02-04 00:04] VITALS: BP 150/78
[2021-02-04] MEDS: IPRATROPIUM BROMIDE 0.02% 2.5 ML NEB NEB SCH ×4 (00:05→18:00)
[2021-02-04] MEDS: ALBUTEROL SULF 0.083% NEB SOLN 3 ML NEB NEB SCH ×5 (00:05→15:05)
[2021-02-04] MEDS: SODIUM CHLORIDE 0.9% 1000ML 1,000 ML IV SCH ×2 (01:51→09:45)
[2021-02-04 04:44] VITALS: BP 160/81
[2021-02-04] MEDS: PANTOPRAZOLE SOD 40 MG TABEC PO SCH (07:47)
[2021-02-04 07:58] VITALS: BP 146/83
[2021-02-04] MEDS: ATORVASTATIN 20 MG TAB PO SCH (08:26)
[2021-02-04] MEDS: MESALAMINE 0.375 GM CAPCR PO SCH (08:26)
[2021-02-04 08:44] VITALS: BP 146/83
[2021-02-04 11:34] VITALS: BP 153/79
[2021-02-04 13:53] LABS: INR 2.57; PROTHROMBIN TIME 28.4 seconds (11.9-14.5)
[2021-02-04 15:50] VITALS: BP 150/104
[2021-02-04] MEDS: WARFARIN SOD 5 MG TAB PO SCH (17:00)
[2021-02-04] MEDS: CEFTRIAXONE 1 GM in SODIUM CHLORIDE 0.9% 50ML 50 ML IV SCH (18:00)
== END 2021-02-04 18:15 | disposition home or self-care (01) | DRG 871 ==
LOC: ER 17:50 → ERHOLD 19:48 → MED/SURG3 21:19
PROVIDERS: ADMIT Internal Medicine; ATTEND Internal Medicine
DX: A41.9 Sepsis, unspecified organism (principal); J18.9 Pneumonia, unspecified organism; J96.01 Acute respiratory failure with hypoxia; G93.41 Metabolic encephalopathy; N39.0 Urinary tract infection, site not specified; J44.1 Chronic obstructive pulmonary disease with (acute) exacerbation; K51.90 Ulcerative colitis, unspecified, without complications; R65.20 Severe sepsis without septic shock; I25.10 Atherosclerotic heart disease of native coronary artery without angina pectoris; Z95.1 Presence of aortocoronary bypass graft; Z87.891 Personal history of nicotine dependence; R73.9 Hyperglycemia, unspecified; T68.XXXA Hypothermia, initial encounter; Z95.5 Presence of coronary angioplasty implant and graft; Z86.718 Personal history of other venous thrombosis and embolism; R62.7 Adult failure to thrive; D64.9 Anemia, unspecified; R91.1 Solitary pulmonary nodule; E78.5 Hyperlipidemia, unspecified; B96.20 Unspecified Escherichia coli [E. coli] as the cause of diseases classified elsewhere; I71.4 Abdominal aortic aneurysm, without rupture; T38.0X5A Adverse effect of glucocorticoids and synthetic analogues, initial encounter; I11.9 Hypertensive heart disease without heart failure
CPT/HCPCS: 36415; 70450; 71045; 71260; 80048; 80053; 81001; 82550; 82553; 82948; 83036; 83605; 83735; 84100; 84484; 85025; 85610; 85730; 87040; 87086; 87186; 87400; 93005; 93306; 99284; J0456; J0696; J2930; J7030; J7050; Q9967; U0002

== ENCOUNTER 2022-03-07 17:55 | Emergency (ER) | payer MEDICARE, OTHER | END 2022-03-07 18:30 | disposition left against medical advice (07) | LOC: ER 18:29 | DX: R50.9 Fever, unspecified (principal) ==